=== PATIENT | male | born 1935 | race Caucasian/White ===

== ENCOUNTER → 2018-09-05 | Outpatient (CLI) | payer MEDICARE, BC ==
[~2018-09-05] MED LIST: ALIS150T PO; ASPI81EC PO; ATOR40TA PO; CEPH500 PO; CIPR500 PO; FURO20 PO; Fish Oil 10001000 MG GT; GLUC500 PO; LEVSOD75 PO; METR500 PO; NIFE60ER PO; OMEPRAZOLE MAGN20 MG PO; SIMV80 PO; TRIHYD253B PO
== END | disposition home or self-care (01) ==
LOC: PLD 14:26 → LAB SHORT 14:26
DX: D22.121 Melanocytic nevi of left upper eyelid, including canthus (principal)
CPT/HCPCS: 88305

== ENCOUNTER 2021-04-16 18:05 | Emergency (ER) | payer OTHER ==
[~2021-04-16] VITALS: Ht 170.2 cm; Wt 84.4 kg
== END 2021-04-16 19:03 | disposition home or self-care (01) ==
LOC: ER 18:05
DX: S61.412A Laceration without foreign body of left hand, initial encounter (principal); W26.8XXA Contact with other sharp object(s), not elsewhere classified, initial encounter
CPT/HCPCS: 99282

== ENCOUNTER → 2021-05-30 | Outpatient (CLI) | payer OTHER | END | disposition home or self-care (01) | LOC: LAB 13:05 → LAB SHORT 13:05 | DX: L08.0 Pyoderma (principal) | CPT/HCPCS: 87070; 87205 ==

== ENCOUNTER 2022-04-20 13:38 | Emergency (ER) | payer OTHER ==
[~2022-04-20] VITALS: Ht 167.6 cm; Wt 81.7 kg
[2022-04-20 16:33] LABS: BASOPHILS ABSOLUTE AUTO 0.05 K/mm3 (0.00-0.23); BASOPHILS PERCENT AUTO 1 % (0-2); EOSINOPHILS ABSOLUTE AUTO 0.35 K/mm3 (0.00-0.68); EOSINOPHILS PERCENT AUTO 4 % (0-6); Hematocrit 42.6 % (37.0-53.0); Hemoglobin 14.3 g/dL (13.5-17.5); IMMATURE GRAN ABSOLUTE AUTO 0.02 K/mm3 (0.00-0.10); IMMATURE GRAN PERCENT AUTO 0 % (0-1); LYMPHOCYTES ABSOLUTE AUTO 1.51 K/mm3 (0.84-5.20); LYMPHOCYTES PERCENT AUTO 19 % (21-46); MONOCYTES PERCENT AUTO 8 % (4-13); Mean Corpuscular HGB 30.3 pg (26.0-34.0); Mean Corpuscular HGB Conc 33.6 g/dL (31.5-36.5); Mean Corpuscular Volume 90 fL (80-100); Mean Platelet Volume 9.9 fL (9.1-12.4); NEUTROPHILS ABSOLUTE AUTO 5.37 K/mm3 (1.96-9.15); NEUTROPHILS PERCENT AUTO 68 % (41-73); Platelet Count 256 K/mm3 (150-400); RDW Coefficient Variation 13.2 % (11.7-14.2); RDW Standard Deviation 43.6 fL (35.1-46.3); Red Blood Cell Count 4.72 M/mm3 (4.30-5.90)
[2022-04-20 16:54] LABS: Albumin, Blood 3.5 g/dL (3.4-5.0); Bilirubin, Total 0.5 mg/dL (0.1-1.0); Bun/Creatinine Ratio 26.1 (12.0-20.0); Creatinine, Blood 1.11 mg/dL (0.60-1.20); Globulin, Blood 3.5 g/dL (2.2-4.0); Potassium, Blood 4.3 mmol/L (3.5-5.5)
== END 2022-04-20 18:05 | disposition home or self-care (01) ==
LOC: ER 13:38
PROVIDERS: Student in an Organized Health Care Education/Training Program
DX: R00.1 Bradycardia, unspecified (principal); R42 Dizziness and giddiness; I44.0 Atrioventricular block, first degree; Z79.899 Other long term (current) drug therapy; Z79.82 Long term (current) use of aspirin; Z95.5 Presence of coronary angioplasty implant and graft
CPT/HCPCS: 36415; 80053; 81000; 85025

== ENCOUNTER 2023-05-05 21:35 | Inpatient (IN) | payer OTHER ==
[~2023-05-05] VITALS: Ht 167.6 cm; Wt 85.0 kg
[2023-05-05 21:54] LABS: BASOPHILS ABSOLUTE AUTO 0.02 K/mm3 (0.00-0.23); BASOPHILS PERCENT AUTO 0 % (0-2); EOSINOPHILS ABSOLUTE AUTO 0.05 K/mm3 (0.00-0.68); EOSINOPHILS PERCENT AUTO 1 % (0-6); Hematocrit 39.6 % (37.0-53.0); Hemoglobin 13.1 g/dL (13.5-17.5); IMMATURE GRAN ABSOLUTE AUTO 0.04 K/mm3 (0.00-0.10); IMMATURE GRAN PERCENT AUTO 0 % (0-1); LYMPHOCYTES PERCENT AUTO 9 % (21-46); MONOCYTES ABSOLUTE AUTO 0.48 K/mm3 (0.16-1.47); MONOCYTES PERCENT AUTO 5 % (4-13); Mean Corpuscular HGB 29.6 pg (26.0-34.0); Mean Corpuscular HGB Conc 33.1 g/dL (31.5-36.5); Mean Corpuscular Volume 90 fL (80-100); NEUTROPHILS PERCENT AUTO 86 % (41-73); Platelet Count 222 K/mm3 (150-400); RDW Standard Deviation 42.7 fL (35.1-46.3); Red Blood Cell Count 4.42 M/mm3 (4.30-5.90); White Blood Cell Count 10.59 K/mm3 (4.00-11.30)
[2023-05-05 22:13] LABS: Albumin, Blood 3.4 g/dL (3.4-5.0); Albumin/Globulin Ratio 0.9 (0.8-1.8); Bilirubin, Total 0.4 mg/dL (0.1-1.0); Bun/Creatinine Ratio 23.4 (12.0-20.0); Creatinine, Blood 1.41 mg/dL (0.60-1.20); Globulin, Blood 3.6 g/dL (2.2-4.0)
[2023-05-06] VITALS (16 sets, daily range): BP systolic 103–148; BP diastolic 63–82
[2023-05-06 01:06] LABS: Anti-Xa UFH, PHA Monitoring <0.10 IU/mL; Prothrombin Time Results 10.5 Sec (9.7-11.5)
[2023-05-06 01:33] LABS: Source, Urine Straight Cath
[2023-05-06 02:04] LABS: Bilirubin, Urine Neg (Neg); Blood, Urine Neg (Neg); Glucose Qualitative, Urine Neg (Neg); Ketones, Urine Neg (Neg); Leukocyte Esterase, Urine Neg (Neg); Nitrite, Urine Neg (Neg); Protein, Urine 2+ (Neg); Urobilinogen, Urine NORM (Normal)
[2023-05-06 02:44] LABS: Appearance, Urine Clear (Clear); Color, Urine Yellow (P-Yellow)
[2023-05-06 02:45] LABS: Amorphous Light (0-Heavy); Bacteria Few /hpf; Red Blood Cells, Urine Not Seen /hpf (0-2); Squamous Epithelial Cells Few /hpf (Few); White Blood Cells, Urine 0-2 /hpf (0-5)
[2023-05-06 02:51] LABS: Magnesium, Blood 1.8 mg/dL (1.6-2.4); Phosphorus, Blood 3.9 mg/dL (2.5-4.9)
--- NOTE | 2023-05-06 05:33 | NUR ---
END OF SHIFT NOTE: PT ARRIVED FROM ED ON GURNY AND STOOD TO TRANSFER. PT A/OX4 BUT FORGETFUL AT TIMES. PT IS A POOR HISTORIAN AND IS UNABLE TO COMPLETE ADMISSION MED REC. TO COME TO BEDSIDE ON DAY SHIFT WITH LIST OF CURRENT MED LIST. PT ON RA, DENIES SOB, SPO2 >90%. PT ON TELE, SINUS SULMA WITH PAC'S AND A COUPLE OF SHORT VTACH RUNS ASYMPTOMATIC. PT DENIES CHEST PAIN OR PRESSURE. PT ARRIVED ON UNIT WITH OLIVA FROM ED, PATENT DRAINING YELLOW URINE TO GRAVITY. HE HAS TWO PATENT IVS. HEPARIN AND FLUIDS RUNNING PER MAY. PT EDUCATED ON NEED TO CALL FOR ASSISTENCE BEFORE GETTING OUT OF BED. BED ALARM ON, CALL LIGHT IN REACH, AND BED IN LOWEST POSITION.
[2023-05-06 05:56] LABS: CHOL/HDL RATIO 2.8; Cholesterol 179 mg/dL (50-200); HDL Cholesterol 64 mg/dL (>39); LDL/HDL RATIO 1.7; Low Density Lipoprotein Chol 109 mg/dL (0-110); Triglycerides 31 mg/dL (30-160); Very Low Density Lipoprot Chol 6 mg/dL (6-32)
[2023-05-06 09:37] LABS: Bun/Creatinine Ratio 29.1 (12.0-20.0); Calcium, Blood 8.3 mg/dL (8.5-10.1); Creatinine, Blood 1.1 mg/dL (0.60-1.20); Potassium, Blood 4.1 mmol/L (3.5-5.5)
--- NOTE | 2023-05-06 10:08 | NUR ---
CARE NOTE PT TO ROLLER OPERATOR FOR ANGIOGRAM AT APPROX. 0950.
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
--- NOTE | 2023-05-06 11:33 | NUR ---
POST SEWING MACHINE BOBBIN WINDER NOTE PT IS ALERT AND ORIENTED X 4 VSS, HE IS ON RA. R RADIAL ACCESS SITE IS COVERED W/ TR BAND, 11 IN THE BAND. THE SITE IS FREE FROM APPARENT BLEEDING/HEMATOMA. CONT. SPO2 MONITORING IMPLIMENTED. HE DENIES FEELINGS OF PAIN. ARM BOARD IS IN PLACE. CALL LIGHT W/IN REACH.
[2023-05-06] MEDS ORDERED: PANT40 PO (14:07)
[2023-05-06] MEDS ORDERED: ESCI10 PO (14:07)
[2023-05-06] MEDS ORDERED: CENTRUM SILVER1 EAC2 PO (14:08)
[2023-05-06] MEDS ORDERED: TRIA50 PO (14:08)
[2023-05-06] MEDS ORDERED: POTASSIUM99 M3 PO (14:09)
--- NOTE | 2023-05-06 15:02 | NUR ---
MED REC NOTE THIS RN OBTAINED COPY OF HOME MEDICATIONS FROM PT'S FRED BUT IT APPEARS THAT THERE MAY BE SOME DISCREPANCIES W/ THE MEDICATION LIST. THIS RN FAXED REQUEST FOR UPDATED MEDICATIONS TO [facility] AT APPROX. 1505.
--- NOTE | 2023-05-06 18:07 | NUR ---
SHIFT SUMMARY PT ANSWERS ORIENTATION QUESTIONS APPROPRIATELY BUT APPEARS CONFUSED AT TIMES. HE HAS BEEN PLEASANT AND COOPERATIVE W/ CARE. BP STABLE. PER TELE MONITORING, HR HAS BEEN SR W/ PAC'S. PT HAS ALSO HAD EPISODES OF V-TACH BUT HAS BEEN ASYMPTOMATIC, DR. BUNN MADE AWARE. SPO2 MAINTAINED >95% VIA RA. HE HAS DENIED FEELINGS OF CHEST PAIN/PRESSURE, LIGHTHEADEDNESS/DIZZINESS AND SOB. HE IS S/P STENT PLACEMENT W/ ACCESS IN R RADIAL SITE. TR BAND IS DEFLATED BUT REMAINS IN PLACE AT THIS TIME. BAPTISTE CATHETER IS IN PLACE AND DRAINING TO GRAVITY DARK YELLOW OUTPUT. HE WAS A 1 PERSON SBA TO RECLINER CHAIR FOR DINNER AND WAS CONSCIENTIOUS ABOUT NOT BEARING WEIGHT ON R ARM, ARM BOARD IN PLACE A REMINDER. HE REPORTED FEELINGS OF NAUSEA/INDIGESTION THAT WAS RELIEVED W/ ZOFRAN. HE REMAINS IN RECLINER CHAIR AT THIS TIME. FRED WAS AT BEDSIDE 2X. CALL LIGHT IS W/IN REACH.
--- NOTE | 2023-05-06 21:28 | NUR ---
ASSUMPTIO OF CARE: THIS RN ASSUMED CARE AT APPROX 1900. PT RESTING IN BED WITH EVEN UNLABORED RESPIRATIONS. SPO2 >90% ON RA. PT ON TELE SINUS SULMA IN THE 50S. PT DENIES CHEST PAIN/PRESSURE. PT A/OX2 TO SELF AND SITUATION. PT UNAWARE OF WHERE HE IS. HE HAS A BAPTISTE THAT IS PATENT, DRAINING DARK YELLOW URINE TO GRAVITY. NO REDNESS, SWELLING, OR PAIN PRESENT. ANGIO SITE IS FREE OF PAIN, SWELLING, OR REDNESS. DISTAL PULSES STRONG. LFA AND RAC IV'S PATENT WITH NO REDNESS, SWELLING, OR PAIN. PT ABLE TO MAKE NEEDS KNOWN, CALL LIGHT IN REACH, BED IN LOWEST POSITION. PT RESTING WITH EVEN UNLABORED RESPIRATIONS.
--- NOTE | 2023-05-06 22:02 | NUR ---
2L NC PLACED TO KEEP SPO2>92% WHEN PT IS SLEEPING
[2023-05-07 03:06] VITALS: BP 129/58
[2023-05-07 04:59] LABS: Hematocrit 37.3 % (37.0-53.0); Hemoglobin 12.4 g/dL (13.5-17.5); Mean Corpuscular HGB 29.8 pg (26.0-34.0); Mean Corpuscular HGB Conc 33.2 g/dL (31.5-36.5); Mean Corpuscular Volume 90 fL (80-100); Mean Platelet Volume 10.1 fL (9.1-12.4); Platelet Count 211 K/mm3 (150-400); RDW Coefficient Variation 13.4 % (11.7-14.2); Red Blood Cell Count 4.16 M/mm3 (4.30-5.90); White Blood Cell Count 9.71 K/mm3 (4.00-11.30)
--- NOTE | 2023-05-07 05:02 | NUR ---
END OF SHIFT NOTE: PT RESTING WITH EVEN UNLABORED RESPIRATIONS ON 4L NC TO MAINTAIN SPO2>90% WHILE SLEEPING. TELE ON, SINUS SULMA 40-60S. RIGHT RADIAL SITE HAS NO SWELLING, REDNESS, OR HEMATOMA. DISTAL PULSES PRESENT AND STRONG. BAPTISTE DRAINING TO GRAVITY YELLOW URNINE. CALL LIGHT IN REACH, BED IN LOWEST POSITION.
--- NOTE | 2023-05-07 07:45 | NUR ---
INITIAL ASSESSMENT: Patient is resting with eyes closed resp E/U, he wakes easily with verbal stimuli. He seems to be slightly [place]. He is Ox4. He denies pain at this time, he states when he came in it was more like an indigestion and, "that feeling has gone away." HRR, he is SB with PACs with a rate in the 40s-60s. LS CTA, biox is 97% on 3L via NC. Per the noc shift RN she had to place him in 4L O2 via NC for some desaturation, will titrate off this AM. BT+. Right radial site with opsite CDI. PPP. He is assited to the recliner with a 1PA for breakfast. He denies other needs at this time. He is encouraged to call when he gets back to bed. Call light in reach.
[2023-05-07 08:06] VITALS: BP 129/78
[2023-05-07] MEDS ORDERED: LOPE2C PO (09:18)
[2023-05-07] MEDS ORDERED: LOSA25 PO (09:20)
[2023-05-07] MEDS ORDERED: NIFE60ER PO (09:21)
[2023-05-07] MEDS ORDERED: POTA10T PO (09:23)
[2023-05-07] MEDS ORDERED: PANT40 PO (09:23)
[2023-05-07] MEDS ORDERED: DYAZIDE 37.5-21 EACH PO (09:25)
[2023-05-07] MEDS ORDERED: ESCITALOPRAM PO (09:26)
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
[2023-05-07] MEDS ORDERED: CLOP75 PO (10:53)
[2023-05-07] MEDS ORDERED: LIPITOR80 MG PO (10:53)
[2023-05-07] MEDS ORDERED: ASPI81CH PO (10:53)
[2023-05-07] MEDS ORDERED: LISI5 PO (10:54)
--- NOTE | 2023-05-07 11:11 | NUR ---
DISCHARGE: Patient and verbalize understanding of discharge instructions, new medications, and radial site care. Patient home with via WC.
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
== END 2023-05-07 11:30 | disposition home or self-care (01) | DRG 321 ==
LOC: ER 21:35 → PCU 21:36
PROVIDERS: Family Medicine; Internal Medicine; Student in an Organized Health Care Education/Training Program; ADMIT Internal Medicine
PROC: 027034Z Dilation of Coronary Artery, One Artery with Drug-eluting Intraluminal Device, Percutaneous Approach (ICD-10-PCS; principal; 2023-05-06)
PROC: B2111ZZ Fluoroscopy of Multiple Coronary Arteries using Low Osmolar Contrast (ICD-10-PCS; 2023-05-06)
PROC: 4A023N7 Measurement of Cardiac Sampling and Pressure, Left Heart, Percutaneous Approach (ICD-10-PCS; 2023-05-06)
DX: T82.855A Stenosis of coronary artery stent, initial encounter (principal); I21.4 Non-ST elevation (NSTEMI) myocardial infarction; N17.9 Acute kidney failure, unspecified; Y83.8 Other surgical procedures as the cause of abnormal reaction of the patient, or of later complication, without mention of misadventure at the time of the procedure; R33.9 Retention of urine, unspecified; R73.9 Hyperglycemia, unspecified; I10 Essential (primary) hypertension; K21.9 Gastro-esophageal reflux disease without esophagitis; D64.9 Anemia, unspecified; E03.9 Hypothyroidism, unspecified; I25.10 Atherosclerotic heart disease of native coronary artery without angina pectoris; M16.12 Unilateral primary osteoarthritis, left hip; Z79.890 Hormone replacement therapy; Z79.82 Long term (current) use of aspirin; Z79.899 Other long term (current) drug therapy; Z95.5 Presence of coronary angioplasty implant and graft
CPT/HCPCS: 36415; 51702; 51798; 71045; 76937; 80048; 80053; 80061; 81001; 82947; 83036; 83735; 83880; 84100; 84443; 84484; 85025; 85027; 85347; 85520; 85610; 85730; 93005; 93010; 93458; 96365-59; 99152; 99153; 99285-25; A9270; C1725; C1769; C1874; C1887; C1894; C8929; C9600; G0378; J0461; J1644; J2250; J2405; J3010; J3246; J7030; J7050; Q9957; Q9967

== ENCOUNTER 2024-07-12 22:01 | Emergency (ER) | payer OTHER ==
[~2024-07-12] VITALS: Ht 167.6 cm; Wt 81.7 kg
[~2024-07-12 22:01] MED LIST changes: +ASPI81CH PO; +CENTRUM SILVER1 EAC2 PO; +CLOP75 PO; +DYAZIDE 37.5-21 EACH PO; +ESCI10 PO; +ESCITALOPRAM PO; +LIPITOR80 MG PO; +LISI5 PO; +LOPE2C PO; +LOSA25 PO; +PANT40 PO; +POTA10T PO; +POTASSIUM99 M3 PO; +TRIA50 PO
[2024-07-12 22:59] LABS: BASOPHILS ABSOLUTE AUTO 0.04 K/mm3 (0.00-0.23); BASOPHILS PERCENT AUTO 0 % (0-2); EOSINOPHILS ABSOLUTE AUTO 0.17 K/mm3 (0.00-0.68); EOSINOPHILS PERCENT AUTO 1 % (0-6); Hematocrit 45.2 % (37.0-53.0); Hemoglobin 14.8 g/dL (13.5-17.5); IMMATURE GRAN ABSOLUTE AUTO 0.03 K/mm3 (0.00-0.10); IMMATURE GRAN PERCENT AUTO 0 % (0-1); LYMPHOCYTES ABSOLUTE AUTO 0.92 K/mm3 (0.84-5.20); LYMPHOCYTES PERCENT AUTO 7 % (21-46); MONOCYTES ABSOLUTE AUTO 0.49 K/mm3 (0.16-1.47); MONOCYTES PERCENT AUTO 4 % (4-13); Mean Corpuscular HGB 29.7 pg (26.0-34.0); Mean Corpuscular HGB Conc 32.7 g/dL (31.5-36.5); Mean Corpuscular Volume 91 fL (80-100); Mean Platelet Volume 9.8 fL (9.1-12.4); NEUTROPHILS ABSOLUTE AUTO 11.16 K/mm3 (1.96-9.15); NEUTROPHILS PERCENT AUTO 87 % (41-73); Platelet Count 269 K/mm3 (150-400); RDW Standard Deviation 42.8 fL (35.1-46.3); Red Blood Cell Count 4.98 M/mm3 (4.30-5.90); White Blood Cell Count 12.81 K/mm3 (4.00-11.30)
[2024-07-12 23:00] LABS: Alanine Aminotransfer (ALT/SGP 16 U/L (12-78); Albumin, Blood 3.8 g/dL (3.4-5.0); Alk Phos 101 U/L (50-136); Anion Gap 12 mmol/L (3-11); Aspartate Aminotrans (AST/SGOT 33 U/L (12-37); Bilirubin, Total 0.5 mg/dL (0.1-1.0); Blood Urea Nitrogen 28 mg/dL (8-24); Bun/Creatinine Ratio 21.5 (12.0-20.0); CO2, Blood 21 mmol/L (21-32); Calcium, Blood 8.7 mg/dL (8.5-10.1); Chloride, Blood 105 mmol/L (98-108); Ethanol (Alcohol), Blood, Med <3 mg/dL; Globulin, Blood 3.9 g/dL (2.2-4.0); Glomerular Filtration Rate 53 (60-); Glucose, Blood 171 mg/dL (70-99); Potassium, Blood 4.2 mmol/L (3.5-5.5); Sodium, Blood 134 mmol/L (136-145); Total Protein, Blood 7.7 g/dL (6.4-8.2)
[2024-07-13] MEDS ORDERED: NS 1,000 ML IV SCH (03:10)
[2024-07-13 05:29] LABS: Appearance, Urine Clear (Clear); Bilirubin, Urine Neg (Neg); Blood, Urine Neg (Neg); Color, Urine Yellow (P-Yellow); Glucose Qualitative, Urine Neg (Neg); Ketones, Urine Neg (Neg); Leukocyte Esterase, Urine Neg (Neg); Nitrite, Urine Neg (Neg); Protein, Urine 2+ (Neg); Urobilinogen, Urine NORM (Normal)
[2024-07-13 05:50] LABS: Bacteria Few /hpf; Red Blood Cells, Urine 0-2 /hpf (0-2); Squamous Epithelial Cells Few /hpf (Few); White Blood Cells, Urine 0-2 /hpf (0-5)
[2024-07-13 08:52] VITALS: BP 146/75
== END 2024-07-13 09:56 | disposition home or self-care (01) ==
LOC: ER 22:01
PROVIDERS: Student in an Organized Health Care Education/Training Program
DX: R10.9 Unspecified abdominal pain (principal); R11.2 Nausea with vomiting, unspecified
CPT/HCPCS: 74177; 80053; 80320; 81001; 83605; 83690; 85025; 93005; 93010; 96360; 99285-25; Q9967